=== PATIENT | female | born 1955 | race Caucasian/White ===

== ENCOUNTER 2017-03-18 15:41 | Emergency (ER) | payer OTHER ==
[~2017-03-18] VITALS: Ht 152.4 cm; Wt 58.0 kg
[2017-03-18 15:43] VITALS: BP 153/70; PULSE 105; RESP 28; TEMP 97.7; O2SAT 100
[2017-03-18 16:07] VITALS: BP 129/58; PULSE 85; RESP 18; O2SAT 100
[2017-03-18] MEDS ORDERED: SODIUM CHLOR 0.9% 1000 ML INJ 1,000 ML IV ONE ×2 (16:10→18:45)
[2017-03-18] MEDS ORDERED: SODIUM CHLORIDE 0.9% FLUSH 10 ML FLUSH IVF PRN (16:15)
[2017-03-18] MEDS ORDERED: ONDANSETRON HCL 4 MG/2 ML VIAL IV PUSH ONE (16:15)
--- NOTE | 2017-03-18 16:20 | PD ---
HPI Chief Complaint: GI Complaint Time Seen by Provider: 16:05 Travel History International Travel<30 days: No Contact w/Intl Traveler<30days: No Traveled to known affect area: No History of Present Illness HPI 61-year-old female presents to the emergency department for evaluation of GI upset, vomiting. She states she woke up feeling fine. Around 9:30 this morning , she started to feel GI upset. She states around 1:30, she started vomiting. She reports vomiting over 8 times since then. She had one loose bowel movement this morning, but no further episodes. She states this is not unusual for her. No blood in her stool. She denies any abdominal pain. She states she has had some tingling to her bilateral hands and lower legs. She states that the hands have resolved, but still has tingling to her bilateral lower legs. She has a history of anxiety. She states she did have an episode shortness of breath, but states she was anxious about the time. She has no shortness of breath at this time. No chest pain. No fevers or chills. Moderate severity. No exacerbating or alleviating factors. PFSH Past Medical History Cancer: Yes (BREAST CA ) Tetanus Vaccination: > 5 Years Past Surgical History Hysterectomy: Yes Thoracic Surgery: Yes (CARPEL TUNNEL ) Other Surgery: Yes (PORT PLACEMENT AND REMOVAL, LEFT TUMOR REMOVAL FROM LEFT BREAST, LYPH NODE ) Social History Alcohol Use: No Tobacco Use: No Substance Use: No Allergies-Medications (Allergen,Severity, Reaction): Coded Allergies: phenobarbital (Verified Allergy, Unknown, 03/18/17) Reported Meds & Prescriptions Reported Meds & Active Scripts Active Reported Cymbalta DR (Duloxetine HCl) 20 Mg Capdr 20 Mg PO BID Zocor (Simvastatin) 40 Mg Tab 40 Mg PO EVERY OTHER DAY Arimidex (Anastrozole) 1 Mg Tab 1 Mg PO DAILY Tylenol Arthritis (Acetaminophen) 650 Mg Tablet.er 650 Mg PO QID Calcium 600 with Vitamin D (Calcium Carbonate-Cholecalciferol) 600-400 mg-Unit Tab 1 Tab PO BID Multiple Vitamin 1 Tab 1 Tab PO DAILY Aspirin Adult Low Strength (Aspirin) 81 Mg Tabdr 81 Mg PO DAILY Sm Iron (Ferrous Sulfate) 325 Mg (65 Mg Iron) Tab 65 Mg PO DAILY Take 2 tablets on even days Review of Systems Except as stated in HPI: all other systems reviewed are Neg Physical Exam Narrative GENERAL: Well-nourished, well-developed female patient, afebrile. SKIN: Focused skin assessment warm/dry. HEAD: Normocephalic. Atraumatic. EYES: No scleral icterus. No injection or drainage. NECK: Supple, trachea midline. No JVD or lymphadenopathy. CARDIOVASCULAR: Regular rate and rhythm without murmurs, gallops, or rubs. RESPIRATORY: Breath sounds equal bilaterally. No accessory muscle use. Lungs sounds are clear to auscultation. GASTROINTESTINAL: Abdomen soft, non-tender, nondistended. No abdominal tenderness to palpation. MUSCULOSKELETAL: No cyanosis, or edema. BACK: Nontender without obvious deformity. No CVA tenderness. Data Data Last Documented VS Vital Signs Date Time Temp Pulse Resp B/P (MAP) Pulse Ox O2 Delivery O2 Flow Rate FiO2 03/18/17 16:34 87 18 97 Room Air 03/18/17 15:43 97.7 Orders Orders Complete Blood Count With Diff (03/18/17 16:10) Comprehensive Metabolic Panel (03/18/17 16:10) Urinalysis - C+S If Indicated (03/18/17 16:10) Lipase (03/18/17 16:10) Iv Access Insert/Monitor (03/18/17 16:10) Ecg Monitoring (03/18/17 16:10) Oximetry (03/18/17 16:10) Ondansetron Inj (Zofran Inj) (03/18/17 16:15) Sodium Chlor 0.9% 1000 Ml Inj (Ns 1000 M (03/18/17 16:10) Sodium Chloride 0.9% Flush (Ns Flush) (03/18/17 16:15) Potassium Chloride (Kcl) (03/18/17 18:45) Sodium Chlor 0.9% 1000 Ml Inj (Ns 1000 M (03/18/17 18:45) Labs Laboratory Tests Test 03/18/17 16:27 03/18/17 17:30 White Blood Count 13.1 TH/MM3 Red Blood Count 4.17 MIL/MM3 Hemoglobin 11.9 GM/DL Hematocrit 36.2 % Mean Corpuscular Volume 86.8 FL Mean Corpuscular Hemoglobin 28.6 PG Mean Corpuscular Hemoglobin Concent 32.9 % Red Cell Distribution Width 14.8 % Platelet Count 293 TH/MM3 Mean Platelet Volume 7.5 FL Neutrophils (%) (Auto) 94.6 % Lymphocytes (%) (Auto) 2.2 % Monocytes (%) (Auto) 3.0 % Eosinophils (%) (Auto) 0.1 % Basophils (%) (Auto) 0.1 % Neutrophils # (Auto) 12.4 TH/MM3 Lymphocytes # (Auto) 0.3 TH/MM3 Monocytes # (Auto) 0.4 TH/MM3 Eosinophils # (Auto) 0.0 TH/MM3 Basophils # (Auto) 0.0 TH/MM3 CBC Comment DIFF FINAL Differential Comment Blood Urea Nitrogen 18 MG/DL Creatinine 0.87 MG/DL Random Glucose 151 MG/DL Total Protein 7.4 GM/DL Albumin 3.7 GM/DL Calcium Level 8.9 MG/DL Alkaline Phosphatase 58 U/L Aspartate Amino Transf (AST/SGOT) 29 U/L Alanine Aminotransferase (ALT/SGPT) 34 U/L Total Bilirubin 0.4 MG/DL Sodium Level 137 MEQ/L Potassium Level 3.4 MEQ/L Chloride Level 103 MEQ/L Carbon Dioxide Level 26.4 MEQ/L Anion Gap 8 MEQ/L Estimat Glomerular Filtration Rate 66 ML/MIN Lipase 98 U/L Urine Color YELLOW Urine Turbidity CLEAR Urine pH 8.0 Urine Specific [place] 1.021 Urine Protein 30 mg/dL Urine Glucose (UA) NEG mg/dL Urine Ketones 80 mg/dL Urine Occult Blood NEG Urine Nitrite NEG Urine Bilirubin NEG Urine Urobilinogen LESS THAN 2.0 MG/DL Urine Leukocyte Esterase NEG Urine WBC 1 /hpf Urine Amorphous Sediment RARE Urine Mucus FEW /lpf Microscopic Urinalysis Comment CULT NOT INDICATED MDM Medical Decision Making Medical Screen Exam Complete: Yes Emergency Medical Condition: Yes Medical Record Reviewed: Yes Differential Diagnosis Gastroenteritis versus electrolyte abnormality versus dehydration versus anxiety Narrative Course 61-year-old female presents to the emergency department for nausea, vomiting, GI upset. She appears well on exam. IV is established. CBC, CMP, lipase, UA are ordered and pending. Patient is given normal saline 1 L IV bolus, Zofran 4 mg IV. CBC shows leukocytosis 13.1. CMP shows slight hypokalemia at 3.4. Lipase is 98. UA shows 80 ketones, no evidence of infection. Patient is given second liter IV normal saline bolus. Upon examination, she is feeling better. Tingling has resolved. Patient will be discharged with a prescription for Zofran for nausea. She is to follow primary care physician. She is return here for any acute worsening of symptoms. She verbalizes agreement and understanding. The patient was discharged in stable condition with instructions, including return instructions and follow up instructions. Diagnosis Primary Impression: Nausea & vomiting Qualified Codes: R11.2 - Nausea with vomiting, unspecified Referrals: Primary Care Physician call for appointment Patient Instructions: Acute Nausea and Vomiting (ED), General Instructions Additional Instructions: Take Zofran as instructed as needed for nausea/vomiting Follow-up with your primary care physician. Return to the emergency department for any acute worsening of symptoms. Med/Other Pt SpecificInfo: Prescription(s) given Scripts Ondansetron Odt (Ondansetron Odt) 4 Mg Tab 4 MG SL Q6HR Y for Nausea/Vomiting, #12 TAB 0 Refills Prov: Tri Beebe 03/18/17 Disposition: 01 DISCHARGE HOME Condition: Stable Tri Beebe Mar 18, 2017 16:20
[2017-03-18 16:34] VITALS: PULSE 87; RESP 18; O2SAT 97
[2017-03-18] MEDS ORDERED: FERR-35 PO (16:40)
[2017-03-18] MEDS ORDERED: ACET650T67 PO (16:40)
[2017-03-18] MEDS ORDERED: ASPI81TA16 PO (16:40)
[2017-03-18] MEDS ORDERED: CALC1TAB87 PO (16:40)
[2017-03-18] MEDS ORDERED: MULTTAB67 PO (16:40)
[2017-03-18] MEDS ORDERED: DULO20 PO (16:41)
[2017-03-18] MEDS ORDERED: ANAS1 PO (16:41)
[2017-03-18] MEDS ORDERED: ZOCO40TA PO (16:41)
[2017-03-18 17:04] LABS: AUTOMATED NEUTROPHIL # 12.4 TH/MM3 (1.8-7.7); BASOPHIL % 0.1 % (0.0-2.0); EOSINOPHIL % 0.1 % (0.0-4.0); HEMATOCRIT 36.2 % (35.0-46.0); HEMOGLOBIN 11.9 GM/DL (11.6-15.3); LYMPH % 2.2 % (9.0-44.0); LYMPHOCYTE # 0.3 TH/MM3 (1.0-4.8); MEAN CELL VOLUME 86.8 FL (80.0-100.0); MEAN CORPUSCULAR HEMOGLOBIN 28.6 PG (27.0-34.0); MEAN CORPUSCULAR HGB CONC 32.9 % (32.0-36.0); MEAN PLATELET VOLUME 7.5 FL (7.0-11.0); MONOCYTE # 0.4 TH/MM3 (0-0.9); NEUT % 94.6 % (16.0-70.0); PLATELET COUNT 293 TH/MM3 (150-450); RED BLOOD COUNT 4.17 MIL/MM3 (4.00-5.30); RED CELL DISTRIBUTION WIDTH 14.8 % (11.6-17.2); WHITE BLOOD COUNT 13.1 TH/MM3 (4.0-11.0)
[2017-03-18 17:25] LABS: ALBUMIN 3.7 GM/DL (3.4-5.0); ALT (GPT) 34 U/L (10-53); AST (GOT) 29 U/L (15-37); BICARBONATE 26.4 MEQ/L (21.0-32.0); BLOOD UREA NITROGEN 18 MG/DL (7-18); CALCIUM 8.9 MG/DL (8.5-10.1); CHLORIDE 103 MEQ/L (98-107); CREATININE 0.87 MG/DL (0.50-1.00); GLOMERULAR FILTRATION RATE 66 ML/MIN (>89); GLUCOSE,RANDOM 151 MG/DL (74-106); LIPASE 98 U/L (73-393); SODIUM (NA) 137 MEQ/L (136-145)
[2017-03-18 17:29] LABS: ALKALINE PHOSPHATASE 58 U/L (45-117); TOTAL BILIRUBIN ADULT 0.4 MG/DL (0.2-1.0); TOTAL PROTEIN 7.4 GM/DL (6.4-8.2)
[2017-03-18 18:23] LABS: AMORPHOUS SEDIMENT, URINE RARE; BILIRUBIN, URINE NEG (NEG); BLOOD, URINE NEG (NEG); GLUCOSE,URINE NEG (NEG); KETONE, URINE 80 mg/dL (NEG); MUCUS URINE FEW /lpf (OCC); NITRITE,URINE NEG (NEG); URINE COLOR YELLOW (YELLW/STRAW); URINE LEUKOCYTE ESTERASE NEG (NEG)
[2017-03-18] MEDS ORDERED: ONDA4TAB7 SL (18:42)
[2017-03-18] MEDS ORDERED: POTASSIUM CHLORIDE 20 MEQ CONTROLLED RELEASE TAB PO ONE (18:45)
[2017-03-18 19:46] VITALS: BP 126/60
== END 2017-03-18 19:48 | disposition home or self-care (01) ==
LOC: NEPE 15:41
DX: R11.2 Nausea with vomiting, unspecified (principal); D72.829 Elevated white blood cell count, unspecified; E87.6 Hypokalemia; R20.2 Paresthesia of skin; F41.9 Anxiety disorder, unspecified; Z79.82 Long term (current) use of aspirin; Z79.899 Other long term (current) drug therapy
CPT/HCPCS: 80053; 81001; 83690; 85025; 96361; 96374; 99284; J2405; J7030

== ENCOUNTER 2018-01-14 06:17 | Inpatient (IN) ==
[2018-01-14] MEDS ORDERED: Famotidine PF Inj 20 MG/2 ML Vial IV.PUSH ONE (07:12)
[2018-01-14] MEDS ORDERED: Morphine Inj 4 MG/ML Vial IV.PUSH ONE (07:12)
[2018-01-14] MEDS ORDERED: Sod Chloride 0.9% Inj 1,000 ML IV.CONT SCH (07:15)
--- NOTE | 2018-01-14 07:20 | ED ---
HPI General Chief Complaint: Abdominal Pain Stated Complaint: Abd pain Time Seen by Provider: 01/14/18 06:59 Source: patient Mode of arrival: ambulatory Limitations: no limitations History of Present Illness HPI narrative: 62-year-old female complains of abdominal pain with nausea. Patient states that she started having sharp pain and cramping pain localized to left mid and left lower quadrant of the abdomen since yesterday. Patient states that the pain has been constant pain. Patient denies any pain radiation. Patient states that pain is worse this morning. Patient has nausea and syncope this morning from the pain. Patient denies any dysuria frequency. Patient denies any vaginal discharge or bleeding. Patient denies any fever chills. Patient status post hysterectomy in the past. Patient denies history of hyperlipidemia. Patient is a non-smoker. MD complaint: Reports abdominal pain Onset (ago): day(s) Pain Consistency: constant Location: Reports LLQ Severity: moderate Severity scale (1-10): 7 Quality: Reports cramping and sharp Radiation: Reports none Migration to: Reports no migration Relieving factors: nothing Exacerbating factors: nothing Associated symptoms: Reports nausea Related Data Home Medications Medication Instructions Recorded Confirmed anastrozole 1 mg PO DAILY 01/14/18 01/14/18 simvastatin 40 mg PO QPM 01/14/18 01/14/18 Allergies Allergy/AdvReac Type Severity Reaction Status Date / Time phenobarbital Allergy Unknown Swelling Verified 01/14/18 06:26 Review of Systems ROS: all other systems reviewed are negative PMFSH Medical History Medical History Breast cancer metastasized to axillary lymph node (Acute) Hyperlipidemia (Acute) Surgical History Surgical History H/O lumpectomy (Acute) Social History Social History Substance History: No History of Abuse Smoking Status: Never smoker How Often Do You Have a Drink Containing Alcohol: Never Recent Travel in [facility] within the Last 8 Weeks: No Recent Out of Country Travel within the Last 8 Weeks: No Immunization History Tetanus Immunization: Unsure Exam Narrative Exam Narrative: GENERAL: Well-nourished, well-developed patient. SKIN: Focused skin assessment warm/dry. HEAD: Normocephalic. EYES: No scleral icterus. No injection or drainage. NECK: Supple, trachea midline. No JVD or lymphadenopathy. CARDIOVASCULAR: Regular rate and rhythm without murmurs, gallops, or rubs. RESPIRATORY: Breath sounds equal bilaterally. No accessory muscle use. GASTROINTESTINAL: Abdomen soft, nondistended. Patient has moderate tenderness in palpation left mid and left lower quadrant of the abdomen. No rebound tenderness. No mass. MUSCULOSKELETAL: No cyanosis, or edema. BACK: Nontender without obvious deformity. No CVA tenderness. Course Initial Documented Vital Signs Temperature 98 F 01/14/18 06:21 Pulse Rate 79 01/14/18 06:21 Respiratory Rate 16 01/14/18 06:21 Blood Pressure 126/56 L 01/14/18 06:21 Pulse Oximetry 100 01/14/18 06:21 Last Documented Vital Signs Temperature 98 F 01/14/18 06:21 Pulse Rate 79 01/14/18 06:21 Respiratory Rate 16 01/14/18 06:21 Blood Pressure 120/60 01/14/18 06:51 Pulse Oximetry 100 01/14/18 06:21 Medical Decision Making MDM Narrative Medical decision making narrative: 62-year-old female with left side mid abdominal pain and left lower quadrant abdominal pain. Normal saline solution 125 cc an hour. Morphine 2 mg IV. Zofran 4 mg IV. Pepcid 20 mg IV. Levaquin 750 mg IV. Flagyl 500 mg IV. Medical Screen Exam Complete: Yes Emergency Medical Condition: Yes Differential Diagnosis Differential Diagnosis: Differential diagnosis including colitis, UTI, pyelonephritis, nephrolithiasis. Lab Data Lab results reviewed: Yes I reviewed the patient's lab results. Result diagrams: 01/14/18 07:19 01/14/18 07:19 Lab Results 01/14/18 01/14/18 01/14/18 Range/Units 07:19 07:19 07:19 WBC 9.1 (4.0-11.0) th/mm3 RBC 4.38 (4.00-5.30) mil/mm3 Hgb 13.3 (11.6-15.3) gm/dL Hct 39.7 (35.0-46.0) % MCV 90.5 (80.0-100.0) fL MCH 30.2 (27.0-34.0) pg MCHC 33.4 (32.0-36.0) % RDW 14.2 (11.6-17.2) % Plt Count 232 (150-450) th/mm3 MPV 8.2 (7.0-11.0) fL Neut % (Auto) 74.1 H (16.0-70.0) % Lymph % (Auto) 16.7 (9.0-44.0) % [place] % (Auto) 8.7 H (0.0-8.0) % Eos % (Auto) 0.1 (0.0-4.0) % Baso % (Auto) 0.4 (0.0-2.0) % Neut # (Auto) 6.8 (1.8-7.7) th/mm3 Lymph # (Auto) 1.5 (1.0-4.8) th/mm3 Mills # (Auto) 0.8 (0.0-0.9) th/mm3 Eos # (Auto) 0.0 (0.0-0.4) th/mm3 Baso # (Auto) 0.0 (0.0-0.2) th/mm3 WBC Differential . Differential Comment Auto diff final PT 10.0 (9.8-11.6) sec INR 1.0 Ratio APTT 24.7 (24.3-30.1) sec Sodium 138 (136-145) meq/L Potassium 4.0 (3.5-5.1) meq/L Chloride 104 (98-107) meq/L Carbon Dioxide 26.4 (21.0-32.0) meq/L Anion Gap 8 (5-15) meq/L BUN 14 (7-18) mg/dL Creatinine 0.87 (0.50-1.00) mg/dL Estimated GFR 66 L (>89) mL/min Random Glucose 117 H (74-106) mg/dL Lactic Acid (0.4-2.0) mmol/L Calcium 9.0 (8.5-10.1) mg/dL Total Bilirubin 0.5 (0.2-1.0) mg/dL AST 27 (15-37) U/L ALT 39 (10-53) U/L Alkaline Phosphatase 65 (45-117) U/L Total Protein 7.5 (6.4-8.2) g/dL Albumin 3.7 (3.4-5.0) g/dL Lipase 61 L (73-393) U/L Urine Color (Yellw/Straw) Urine Clarity (Clear) Urine pH (5.0-8.5) Ur Specific [place] (1.002-1.035) Urine Protein (Neg-Trace) mg/dL Urine Glucose (UA) (Negative) mg/dL Urine Ketones (Negative) mg/dL Urine Occult Blood (Negative) Urine Nitrate (Negative) Urine Bilirubin (Negative) Urine Urobilinogen (Less than 2) mg/dL Ur Leukocyte Esterase (Negative) Urine RBC (0-3) /hpf Urine WBC (0-5) /hpf Ur Squamous Epith Cells (0-5) /hpf Amorphous Sediment (None) /hpf Urine Bacteria (None) /hpf Micro UA Comment Ur Microscopic Review Urine Culture Comments 01/14/18 01/14/18 Range/Units 07:20 07:20 WBC (4.0-11.0) th/mm3 RBC (4.00-5.30) mil/mm3 Hgb (11.6-15.3) gm/dL Hct (35.0-46.0) % MCV (80.0-100.0) fL MCH (27.0-34.0) pg MCHC (32.0-36.0) % RDW (11.6-17.2) % Plt Count (150-450) th/mm3 MPV (7.0-11.0) fL Neut % (Auto) (16.0-70.0) % Lymph % (Auto) (9.0-44.0) % Mills % (Auto) (0.0-8.0) % Eos % (Auto) (0.0-4.0) % Baso % (Auto) (0.0-2.0) % Neut # (Auto) (1.8-7.7) th/mm3 Lymph # (Auto) (1.0-4.8) th/mm3 Mills # (Auto) (0.0-0.9) th/mm3 Eos # (Auto) (0.0-0.4) th/mm3 Baso # (Auto) (0.0-0.2) th/mm3 WBC Differential Differential Comment PT (9.8-11.6) sec INR Ratio APTT (24.3-30.1) sec Sodium (136-145) meq/L Potassium (3.5-5.1) meq/L Chloride (98-107) meq/L Carbon Dioxide (21.0-32.0) meq/L Anion Gap (5-15) meq/L BUN (7-18) mg/dL Creatinine (0.50-1.00) mg/dL Estimated GFR (>89) mL/min Random Glucose (74-106) mg/dL Lactic Acid 0.7 (0.4-2.0) mmol/L Calcium (8.5-10.1) mg/dL Total Bilirubin (0.2-1.0) mg/dL AST (15-37) U/L ALT (10-53) U/L Alkaline Phosphatase (45-117) U/L Total Protein (6.4-8.2) g/dL Albumin (3.4-5.0) g/dL Lipase (73-393) U/L Urine Color Yellow (Yellw/Straw) Urine Clarity Hazy H (Clear) Urine pH 7.5 (5.0-8.5) Ur Specific [place] 1.016 (1.002-1.035) Urine Protein 100 H (Neg-Trace) mg/dL Urine Glucose (UA) Negative (Negative) mg/dL Urine Ketones Trace H (Negative) mg/dL Urine Occult Blood Trace H (Negative) Urine Nitrate Negative (Negative) Urine Bilirubin Negative (Negative) Urine Urobilinogen 0.2 (Less than 2) mg/dL Ur Leukocyte Esterase Negative (Negative) Urine RBC 0-3 (0-3) /hpf Urine WBC 0-5 (0-5) /hpf Ur Squamous Epith Cells 0-5 (0-5) /hpf Amorphous Sediment Many H (None) /hpf Urine Bacteria Few H (None) /hpf Micro UA Comment Culture not ind Ur Microscopic Review Not Reportable Urine Culture Comments Culture not ind Imaging Data Attestation: I personally reviewed and interpreted this imaging study as follows : Radiologist's impression: Abdomen/Pelvis CT 01/14/18 07:12 CONCLUSION: 1. Abnormal distal descending colon with wall thickening and mild inflammatory change. There are several diverticuli in this region and the findings are most characteristic of acute diverticulitis. There is no free air. There is a small amount of fluid in the lower posterior pelvis. 2. No evidence of metastatic disease. Discharge Plan Discharge Disposition Patient Disposition: Still Patient Discharge Details Diagnosis: Acute diverticulitis Physicians Team ED Provider: Jaylon Sy Primary Care Provider: UNKNOWN, Rxs /Orders / Referrals /Forms Prescriptions: No Action anastrozole 1 mg Tablet 1 mg PO DAILY RF: 0 simvastatin 40 mg Tablet 40 mg PO QPM RF: 0 Status ED Status: With Doctor
[2018-01-14 07:53] LABS: Baso % (Auto) 0.4 % (0.0-2.0); Eos % (Auto) 0.1 % (0.0-4.0); Hematocrit 39.7 % (35.0-46.0); Hemoglobin 13.3 gm/dL (11.6-15.3); Lymph # (Auto) 1.5 th/mm3 (1.0-4.8); Lymph % (Auto) 16.7 % (9.0-44.0); Mean Corpuscular HGB Conc 33.4 % (32.0-36.0); Mean Corpuscular Hemoglobin 30.2 pg (27.0-34.0); Mean Corpuscular Volume 90.5 fL (80.0-100.0); Mean Platelet Volume 8.2 fL (7.0-11.0); Mono # (Auto) 0.8 th/mm3 (0.0-0.9); Mono % (Auto) 8.7 % (0.0-8.0); Neut # (Auto) 6.8 th/mm3 (1.8-7.7); Neut % (Auto) 74.1 % (16.0-70.0); Platelet Count 232 th/mm3 (150-450); Red Blood Count 4.38 mil/mm3 (4.00-5.30); Red Cell Distribution Width 14.2 % (11.6-17.2); White Blood Count 9.1 th/mm3 (4.0-11.0)
[2018-01-14 08:01] LABS: Activated Partial Thrombo Time 24.7 sec (24.3-30.1)
[2018-01-14 08:09] LABS: Albumin 3.7 g/dL (3.4-5.0); Anion Gap 8 meq/L (5-15); Aspartate Aminotransferase 27 U/L (15-37); Blood Urea Nitrogen 14 mg/dL (7-18); Carbon Dioxide 26.4 meq/L (21.0-32.0); Chloride 104 meq/L (98-107); Glomerular Filtration Rate 66 mL/min (>89); Glucose,Random 117 mg/dL (74-106); Lipase 61 U/L (73-393); Sodium 138 meq/L (136-145)
[2018-01-14 08:10] LABS: Alanine Aminotransferase 39 U/L (10-53)
[2018-01-14 08:12] LABS: Alkaline Phosphatase 65 U/L (45-117); Total Protein 7.5 g/dL (6.4-8.2)
[2018-01-14 08:29] LABS: Bilirubin,Urine Negative (Negative); Color,Urine Yellow (Yellw/Straw); Glucose,Urine (UA) Negative (Negative); Leukocyte Esterase,Urine Negative (Negative); Nitrite,Urine Negative (Negative); PH,Urine 7.5 (5.0-8.5); Urobilinogen,Urine 0.2 mg/dL (Less than 2)
[2018-01-14 08:31] LABS: Clarity,Urine Hazy (Clear); RBC,Urine 0-3 /hpf (0-3); Specific Gravity,Urine 1.016 (1.002-1.035); WBC,Urine 0-5 /hpf (0-5)
[2018-01-14 08:32] LABS: Amorphous Sediment,Urine Many /hpf; Bacteria,Urine Few /hpf; Squamous Epithelial Cell,Urine 0-5 /hpf (0-5)
--- NOTE | 2018-01-14 08:53 | CT ---
EXAM DATE: 01/14/2018 8:36 AM EDT AGE/SEX: 62 years / Female INDICATIONS: Left lower abdominal pain with nausea CLINICAL DATA: This is the patient's initial encounter. Patient reports that signs and symptoms have been present for 1 day and indicates a pain score of 7/10. MEDICAL/SURGICAL HISTORY: Carcinoma, breast. Hyperlipidemia Hysterectomy. Lumpectomy ORAL CONTRAST: No oral contrast ingested. RADIATION DOSE: 6.64 CTDI (mGy) COMPARISON: No prior exams available for comparison. TECHNIQUE: Multiple contiguous axial images were obtained through the abdomen and pelvis following b olus infusion of 98 ml Omnipaque 350 (iohexol) nonionic water-soluble contrast as a single exam dos e. No oral contrast ingested. Using automated exposure control and adjustment of the mA and/or kV ac cording to patient size, radiation dose was kept as low as reasonably achievable to obtain optimal di agnostic quality images. DICOM format image data is available electronically for review and comparis on. FINDINGS: Lower Lungs: The visualized lower lungs are clear. Liver: The liver has a homogeneous density without space-occupying lesion. There is no dilation of th e biliary tree. The gallbladder is unremarkable in appearance. Spleen: Homogeneous density without enlargement. Pancreas: Unremarkable without mass or calcification. Kidneys: Normal in size and shape. No evidence of mass or hydronephrosis. Adrenal Glands: Unremarkable. Aorta: Atherosclerotic changes are noted in the aorta with calcification and mild plaque. There is no aneurysm. Bowel/Mesentery: No oral contrast was given limiting the sensitivity of the exam. The distal descend ing colon is abnormal appearance with wall thickening and inflammatory change. There are several dive rticuli in this region. There is no free air. Small amount of fluid in the posterior pelvis. There ar e multiple loops of nondilated air-containing small bowel with several small air-fluid levels. Abdominal Wall: Intact. Retroperitoneum: No evidence of adenopathy in the retrocrural, para-aortic, or deep pelvic regions. Bladder: Contours are smooth. Reproductive Organs: No abnormal masses or calcifications seen. Inguinal: The inguinal region is unremarkable without evidence of adenopathy. Bony Structures: Unremarkable. CONCLUSION: 1. Abnormal distal descending colon with wall thickening and mild inflammatory change. There are sev eral diverticuli in this region and the findings are most characteristic of acute diverticulitis. The re is no free air. There is a small amount of fluid in the lower posterior pelvis. 2. No evidence of metastatic disease. Electronically signed by: Laureano Ram MD 01/14/2018 8:52 AM EDT
--- NOTE | 2018-01-14 09:26 | P.HP ---
History of Present Illness Primary Care Physician: UNKNOWN Chief Complaint: Abdominal pain History of Present Illness: This is a pleasant 62 y/o Female who came to ER with Nausea and abdominal pain, Patient states that she started having sharp pain and cramping pain localized to left mid and left lower quadrant of the abdomen since yesterday. Patient states that the pain has been constant pain. Patient denies any pain radiation. Patient states that pain is worse this morning. Patient has nausea and syncope this morning from the pain. Patient denies any dysuria frequency. Patient denies any vaginal discharge or bleeding. Patient denies any fever chills. Patient status post hysterectomy in the past. pain described as constant pain, on LLQ, 7/10 in intensity, sharp sensation. has history of Breast history metastasized to axillary lymph node, Hyperlipidemia. as per patient the pain started yesterday, 8/10 in intensity, sharp sensation, on LLQ and Left flank. Review of Systems All other systems reviewed negative except as stated in HPI PMFSH - History History Provided By: Patient - Medical History Medical History: Medical History (Last Reviewed 01/14/18 @ 07:21 by Jaylon Sy MD) Breast cancer metastasized to axillary lymph node Hyperlipidemia - Surgical History Surgical History: Surgical History (Last Reviewed 01/14/18 @ 07:21 by Jaylon Sy MD) H/O lumpectomy - Family History Family History: Family History (Last Updated 01/14/18 @ 13:15 by Evaristo Nina MD) Father Family history of cancer Mother Crohn disease - Tobacco History Smoking Status: Never smoker - Alcohol History How Often Do You Have a Drink Containing Alcohol: Never - Substance Use History Substance History: No History of Abuse - Travel History Recent Travel in the [place] Within the Last 8 Weeks: No Recent Travel Out of the Country Within the Last 8 Weeks: No - Immunization History Tetanus Immunization: Unsure Medications and Allergies Active Medications: Active Medications Sodium Chloride (Ns Inj) 1,000 mls @ 125 mls/hr IV.CONT .Q8H [facility] Stop: 01/14/18 15:14 Last Admin: 01/14/18 07:35 Dose: 125 mls/hr Levofloxacin/Dextrose (Levaquin 750 Mg Premix Inj) 150 mls @ 100 mls/hr IV.SIG ONCE ONE Stop: 01/14/18 10:36 Metronidazole/Sodium Chloride (Flagyl 500 Mg Inj) 100 mls @ 100 mls/hr IV.SIG ONCE ONE Stop: 01/14/18 10:06 Allergies Allergy/AdvReac Type Severity Reaction Status Date / Time phenobarbital Allergy Unknown Swelling Verified 01/14/18 06:26 Home Medications Medication Instructions Recorded Confirmed Type anastrozole 1 mg PO DAILY 01/14/18 01/14/18 History simvastatin 40 mg PO QPM 01/14/18 01/14/18 History Exam Vital signs: Vital Signs 01/14/18 06:21 01/14/18 06:51 Temperature 98 F Pulse Rate 79 Respiratory Rate 16 Blood Pressure 126/56 L 120/60 Pulse Oximetry 100 Intake & Output 01/13/18 01/14/18 01/14/18 18:59 06:59 18:59 Weight 56.699 kg Narrative: GENERAL: Well-nourished, well-developed patient. SKIN: Focused skin assessment warm/dry. HEAD: Normocephalic. EYES: No scleral icterus. No injection or drainage. NECK: Supple, trachea midline. No JVD or lymphadenopathy. CARDIOVASCULAR: Regular rate and rhythm without murmurs, gallops, or rubs. RESPIRATORY: Breath sounds equal bilaterally. No accessory muscle use. GASTROINTESTINAL: Abdomen soft, nondistended. Patient has moderate tenderness in palpation left mid and left lower quadrant of the abdomen. No rebound tenderness. No mass. MUSCULOSKELETAL: No cyanosis, or edema. BACK: Nontender without obvious deformity. No CVA tenderness. Results - Labs CBC & Chem 7: 01/14/18 07:19 01/14/18 07:19 Labs: Laboratory Results - last 24 hr 01/14/18 01/14/18 01/14/18 07:19 07:19 07:19 WBC 9.1 RBC 4.38 Hgb 13.3 Hct 39.7 MCV 90.5 MCH 30.2 MCHC 33.4 RDW 14.2 Plt Count 232 MPV 8.2 Neut % (Auto) 74.1 H Lymph % (Auto) 16.7 [place] % (Auto) 8.7 H Eos % (Auto) 0.1 Baso % (Auto) 0.4 Neut # (Auto) 6.8 Lymph # (Auto) 1.5 [place] # (Auto) 0.8 Eos # (Auto) 0.0 Baso # (Auto) 0.0 WBC Differential . Differential Comment Auto diff final PT 10.0 INR 1.0 APTT 24.7 Sodium 138 Potassium 4.0 Chloride 104 Carbon Dioxide 26.4 Anion Gap 8 BUN 14 Creatinine 0.87 Estimated GFR 66 L Random Glucose 117 H Lactic Acid Calcium 9.0 Total Bilirubin 0.5 AST 27 ALT 39 Alkaline Phosphatase 65 Total Protein 7.5 Albumin 3.7 Lipase 61 L Urine Color Urine Clarity Urine pH Ur Specific [place] Urine Protein Urine Glucose (UA) Urine Ketones Urine Occult Blood Urine Nitrate Urine Bilirubin Urine Urobilinogen Ur Leukocyte Esterase Urine RBC Urine WBC Ur Squamous Epith Cells Amorphous Sediment Urine Bacteria Micro UA Comment Ur Microscopic Review Urine Culture Comments 01/14/18 01/14/18 07:20 07:20 WBC RBC Hgb Hct MCV MCH MCHC RDW Plt Count MPV Neut % (Auto) Lymph % (Auto) [place] % (Auto) Eos % (Auto) Baso % (Auto) Neut # (Auto) Lymph # (Auto) [place] # (Auto) Eos # (Auto) Baso # (Auto) WBC Differential Differential Comment PT INR APTT Sodium Potassium Chloride Carbon Dioxide Anion Gap BUN Creatinine Estimated GFR Random Glucose Lactic Acid 0.7 Calcium Total Bilirubin AST ALT Alkaline Phosphatase Total Protein Albumin Lipase Urine Color Yellow Urine Clarity Hazy H Urine pH 7.5 Ur Specific [place] 1.016 Urine Protein 100 H Urine Glucose (UA) Negative Urine Ketones Trace H Urine Occult Blood Trace H Urine Nitrate Negative Urine Bilirubin Negative Urine Urobilinogen 0.2 Ur Leukocyte Esterase Negative Urine RBC 0-3 Urine WBC 0-5 Ur Squamous Epith Cells 0-5 Amorphous Sediment Many H Urine Bacteria Few H Micro UA Comment Culture not ind Ur Microscopic Review Not Reportable Urine Culture Comments Culture not ind - Imaging Impressions Abdomen/Pelvis CT 01/14/18 07:12 CONCLUSION: 1. Abnormal distal descending colon with wall thickening and mild inflammatory change. There are several diverticuli in this region and the findings are most characteristic of acute diverticulitis. There is no free air. There is a small amount of fluid in the lower posterior pelvis. 2. No evidence of metastatic disease. Caprini VTE Risk Assessment Caprini VTE Risk Assessment: No/Low Risk (score <= 1) Caprini Risk Assessment Model: Point Value = 1 Point Value = 2 Point Value = 3 Point Value = 5 Age 41-60 Minor surgery BMI > 25 kg/m2 Swollen legs Varicose veins or History of unexplained or recurrent spontaneous Oral contraceptives or hormone replacement Sepsis (< 1 month) Serious lung disease, including pneumonia (< 1 month) Abnormal pulmonary function Acute myocardial infarction Congestive heart failure (< 1 month) History of inflammatory bowel disease Medical patient at bed rest Age 61-74 Arthroscopic surgery Major open surgery (> 45 min) Laparoscopic surgery (> 45 min) Malignancy Confined to bed (> 72 hours) Immobilizing plaster cast Central venous access Age >= 75 History of VTE Family history of VTE Factor V Leiden Prothrombin [id number] Lupus anticoagulant Anticardiolipin antibodies Elevated serum homocysteine Heparin-induced thrombocytopenia Other congenital or acquired thrombophilia Stroke (< 1 month) Elective arthroplasty Hip, pelvis, or leg fracture Acute spinal cord injury (< 1 month) Prophylaxis Regimen: Total Risk Factor Score Risk Level Prophylaxis Regimen 0-1 Low Early ambulation 2 Moderate Order ONE of the following: *Sequential Compression Device (SCD) *Heparin 5000 units SQ BID 3-4 Higher Order ONE of the following medications: *Heparin 5000 units SQ TID *Enoxaparin/Lovenox 40 mg SQ daily (WT < 150 kg, CrCl > 30 mL/min) *Enoxaparin/Lovenox 30 mg SQ daily (WT < 150 kg, CrCl > 10-29 mL/min) *Enoxaparin/Lovenox 30 mg SQ BID (WT < 150 kg, CrCl > 30 mL/min) AND/OR *Sequential Compression Device (SCD) 5 or more Highest Order ONE of the following medications: *Heparin 5000 units SQ TID (Preferred with Epidurals) *Enoxaparin/Lovenox 40 mg SQ daily (WT < 150 kg, CrCl > 30 mL/min) *Enoxaparin/Lovenox 30 mg SQ daily (WT < 150 kg, CrCl > 10-29 mL/min) *Enoxaparin/Lovenox 30 mg SQ BID (WT < 150 kg, CrCl > 30 mL/min) AND *Sequential Compression Device (SCD) Assessment and Plan - Plan 1. Intractable Abdominal pain/Nausea and vomit given Zofran, Pepcid and Levaquin in ER, WBC count 9.1, Hemoglobin 13.3, CT abdomen and Pelvis Abnormal distal descending Colon with wall thickening and mild inflammatory changes. Several diverticula in this region for diverticulitis, no evidence of metastatic disease, will continue Levofloxacin and Metronidazole already started in ER. NPO, IV fluids and follow electrolytes, GI specialist consult. Protonix. 2. Acute Diverticulitis continue IV antibiotics for at least three days then may continue by mouth. 3. Hyperlipidemia on hold Statin 4. Breast Cancer History with metastasis to Lymph node DVT prophylaxis with Heparin. Code Status: Full code. Discussed Condition With: Patient and Nurse. Discharge Planning: Once cleared by Specialist
[2018-01-14] MEDS ORDERED: Bisacodyl 10 MG Supp RECTAL PRN (09:27)
[2018-01-14] MEDS: Heparin - SQ 10,000 UNITS/ML Vial SQ SCH ×2 (12:10→19:52)
[2018-01-14] MEDS: Acetaminophen 325 MG Tablet PO PRN ×2 (12:12→19:51)
[2018-01-14] MEDS: Sod Chloride 0.9% Inj 1,000 ML IV.CONT SCH ×2 (13:57→21:47)
[2018-01-14] MEDS: Pantoprazole Inj 40 MG Vial IV.PUSH SCH ×2 (13:58→20:00)
--- NOTE | 2018-01-14 16:41 | P.CONGI ---
History of Present Illness Consult date: 01/14/18 Consult reason: Abdominal pain, Chief complaint: Acute Diverticulitis History of Present Illness: This is a slim 62-year-old female who had been in her usual state of health up until approximately 30 hours ago when she noted left-sided mid and lower abdominal pain uncontrolled with a pain scale of 7 out of 10. Patient noted the pain was sharp and fairly consistent and with symptoms of some nausea and vomiting which continues throughout this day. Patient denies any obvious dyspepsia or dysphasia and no obvious bleeding. Aggregating factors none known alleviating factors hydration and pain management at the hospital. Gastroenterology has been consulted to assist with her symptoms and current patient care. CT scan on admission showed descending colon wall thickening and mild inflammation changes probable related to diverticulitis. No obvious metastasis seen. Patient notes last colonoscopy done around 2006 without any issues and no previous EGD. Patient does note family history of mom with Crohn' s disease but no known colon cancer. Current labs evaluated found in hemoglobin 13.3, WBC count 9.1. Patient has never been seen by gastroenterology before but goes to the [facility] group with Dr. Bae and patient would also like to be followed by this group if at all possible. [facility] History History Provided By: Patient - Medical History Medical History: Medical History (Last Reviewed 01/14/18 @ 07:21 by Jaylon Sy MD) Breast cancer metastasized to axillary lymph node Hyperlipidemia - Surgical History Surgical History: Surgical History (Last Reviewed 01/14/18 @ 07:21 by Jaylon Sy MD) H/O lumpectomy - Family History Family History: Family History (Last Updated 01/14/18 @ 13:15 by Evaristo Nina MD) Father Family history of cancer Mother Crohn disease - Tobacco History Second Hand Smoke Exposure: No Tobacco Use In Past 30 Days: No Smoking Status: Former smoker Tobacco Type: Cigarettes - Alcohol History How Often Do You Have a Drink Containing Alcohol: Never - Substance Use History Substance History: No History of Abuse - Travel History Recent Travel in the [place] Within the Last 8 Weeks: No Recent Travel Out of the Country Within the Last 8 Weeks: No - Immunization History Tetanus Immunization: Unsure Hx Influenza Vaccine This Season: Yes Medications and Allergies Active Medications: Active Medications Acetaminophen (Tylenol) 650 mg PO Q4H PRN PRN Reason: Temp > 100.4 Last Admin: 01/14/18 12:12 Dose: 650 mg Al Hydroxide/Mg Hydroxide (Milk Of Magnesia Liq) 30 ml PO Q12H PRN PRN Reason: Mild Constipation Bisacodyl (Dulcolax Supp) 10 mg RECTAL DAILY PRN PRN Reason: SEVERE CONSITIPATION Heparin Sodium (Porcine) (Heparin Inj) 5,000 units SQ Q8H [facility] Last Admin: 01/14/18 12:10 Dose: 5,000 units Sodium Chloride (Ns Inj) 1,000 mls @ 100 mls/hr IV.CONT .Q10H [facility] Last Admin: 01/14/18 13:57 Dose: 100 mls/hr Metronidazole/Sodium Chloride (Flagyl 500 Mg Inj) 100 mls @ 100 mls/hr IV.SIG Q8H [facility] Levofloxacin/Dextrose (Levaquin 750 Mg Premix Inj) 150 mls @ 100 mls/hr IV.SIG Q24H [facility] Lactulose (Lactulose Liq) 30 ml PO DAILY PRN PRN Reason: SEVERE CONSITIPATION Ondansetron HCl (Zofran Inj) 4 mg IV.PUSH Q4H PRN PRN Reason: NAUSEA OR VOMITING Last Admin: 01/14/18 12:11 Dose: 4 mg Pantoprazole Sodium (Protonix Inj) 40 mg IV.PUSH Q12HR [facility] Last Admin: 01/14/18 13:58 Dose: 40 mg Sennosides (Senokot) 17.2 mg PO Q12H PRN PRN Reason: Moderate Constipation Allergies Allergy/AdvReac Type Severity Reaction Status Date / Time phenobarbital Allergy Unknown Swelling Verified 01/14/18 06:26 Home Medications Medication Instructions Recorded Confirmed Type anastrozole 1 mg PO DAILY 01/14/18 01/14/18 History simvastatin 40 mg PO QPM 01/14/18 01/14/18 History Exam Vital signs: Vital Signs 01/14/18 06:21 01/14/18 06:51 01/14/18 11:10 Temperature 98 F Pulse Rate 79 87 Respiratory Rate 16 18 Blood Pressure 126/56 L 120/60 109/55 L Pulse Oximetry 100 Intake & Output 01/13/18 01/14/18 01/14/18 18:59 06:59 18:59 Intake Total 1250 / 1250 Balance 1250 / 1250 Weight 56.699 kg 58.7 kg Intake: IV 1250 / 1250 NS Inj 1,000 ML @ 125 mls/hr IV 1000 / 1000 .CONT .Q8H [facility] Rx#:[id number] Other: Weight On Admission 56.699 kg Results - Labs CBC & Chem 7: 01/14/18 07:19 01/14/18 07:19 Labs: Laboratory Results - last 24 hr 01/14/18 01/14/18 01/14/18 07:19 07:19 07:19 WBC 9.1 RBC 4.38 Hgb 13.3 Hct 39.7 MCV 90.5 MCH 30.2 MCHC 33.4 RDW 14.2 Plt Count 232 MPV 8.2 Neut % (Auto) 74.1 H Lymph % (Auto) 16.7 [place] % (Auto) 8.7 H Eos % (Auto) 0.1 Baso % (Auto) 0.4 Neut # (Auto) 6.8 Lymph # (Auto) 1.5 [place] # (Auto) 0.8 Eos # (Auto) 0.0 Baso # (Auto) 0.0 WBC Differential . Differential Comment Auto diff final PT 10.0 INR 1.0 APTT 24.7 Sodium 138 Potassium 4.0 Chloride 104 Carbon Dioxide 26.4 Anion Gap 8 BUN 14 Creatinine 0.87 Estimated GFR 66 L Random Glucose 117 H Lactic Acid Calcium 9.0 Total Bilirubin 0.5 AST 27 ALT 39 Alkaline Phosphatase 65 Total Protein 7.5 Albumin 3.7 Lipase 61 L Urine Color Urine Clarity Urine pH Ur Specific [place] Urine Protein Urine Glucose (UA) Urine Ketones Urine Occult Blood Urine Nitrate Urine Bilirubin Urine Urobilinogen Ur Leukocyte Esterase Urine RBC Urine WBC Ur Squamous Epith Cells Amorphous Sediment Urine Bacteria Micro UA Comment Ur Microscopic Review Urine Culture Comments 01/14/18 01/14/18 07:20 07:20 WBC RBC Hgb Hct MCV MCH MCHC RDW Plt Count MPV Neut % (Auto) Lymph % (Auto) [place] % (Auto) Eos % (Auto) Baso % (Auto) Neut # (Auto) Lymph # (Auto) [place] # (Auto) Eos # (Auto) Baso # (Auto) WBC Differential Differential Comment PT INR APTT Sodium Potassium Chloride Carbon Dioxide Anion Gap BUN Creatinine Estimated GFR Random Glucose Lactic Acid 0.7 Calcium Total Bilirubin AST ALT Alkaline Phosphatase Total Protein Albumin Lipase Urine Color Yellow Urine Clarity Hazy H Urine pH 7.5 Ur Specific [place] 1.016 Urine Protein 100 H Urine Glucose (UA) Negative Urine Ketones Trace H Urine Occult Blood Trace H Urine Nitrate Negative Urine Bilirubin Negative Urine Urobilinogen 0.2 Ur Leukocyte Esterase Negative Urine RBC 0-3 Urine WBC 0-5 Ur Squamous Epith Cells 0-5 Amorphous Sediment Many H Urine Bacteria Few H Micro UA Comment Culture not ind Ur Microscopic Review Not Reportable Urine Culture Comments Culture not ind - Imaging Impressions Abdomen/Pelvis CT 01/14/18 07:12 CONCLUSION: 1. Abnormal distal descending colon with wall thickening and mild inflammatory change. There are several diverticuli in this region and the findings are most characteristic of acute diverticulitis. There is no free air. There is a small amount of fluid in the lower posterior pelvis. 2. No evidence of metastatic disease. Assessment and Plan - Plan 62-year-old female who had been in her usual state of health up until approximately 30 hours ago when she noted left-sided mid and lower abdominal pain uncontrolled with a pain scale of 7 out of 10. Patient noted the pain was sharp and fairly consistent and with symptoms of some nausea and vomiting which continues throughout this day. Patient denies any obvious dyspepsia or dysphasia and no obvious bleeding. Aggregating factors none known alleviating factors hydration and pain management at the hospital. Gastroenterology has been consulted to assist with her symptoms and current patient care. CT scan on admission showed descending colon wall thickening and mild inflammation changes probable related to diverticulitis. No obvious metastasis seen. Patient notes last colonoscopy done around 2006 without any issues and no previous EGD. Patient does note family history of mom with Crohn's disease but no known colon cancer. Current labs evaluated found in hemoglobin 13.3, WBC count 9.1. Patient has never been seen by gastroenterology before but goes to the [facility] group with Dr. Bae and patient would also like to be followed by this group if at all possible. Follow-up will be done on this request in the a.m. Diverticulitis diagnosed on CT scan, descending colon with wall thickening and mild inflammation changes Left lower quadrant abdominal pain times 30 hours with some associated nausea and vomiting Plan Diet, n.p.o. for now, may have a few ice chips if not actively vomiting to moisten oral cavity Monitor labs IV hydration Levaquin IV Flagyl IV PPI Bowel regimen Supportive care, will follow up on patient's request for [facility] since her is a patient there in a.m. Patient was seen per myself and , note was written on his behalf
--- NOTE | 2018-01-14 22:03 | ECG ---
Date Performed: 01/14/2018 Time Performed: 06:39:45 PTAGE: 62 years EKG: Sinus rhythm NORMAL ECG NO PREVIOUS TRACING DOCTOR: Fani Brown Interpretating Date/Time 01/14/2018 22:03:25
[2018-01-15] MEDS: Sod Chloride 0.9% Inj 1,000 ML IV.CONT SCH ×2 (00:09→05:42)
[2018-01-15] MEDS: Heparin - SQ 10,000 UNITS/ML Vial SQ SCH ×3 (03:35→18:18)
[2018-01-15 04:20] LABS: Baso % (Auto) 0.4 % (0.0-2.0); Eos % (Auto) 0.5 % (0.0-4.0); Hematocrit 35.7 % (35.0-46.0); Hemoglobin 12.1 gm/dL (11.6-15.3); Lymph # (Auto) 1.8 th/mm3 (1.0-4.8); Mean Corpuscular HGB Conc 33.9 % (32.0-36.0); Mean Corpuscular Hemoglobin 30.4 pg (27.0-34.0); Mean Corpuscular Volume 89.5 fL (80.0-100.0); Mean Platelet Volume 8.2 fL (7.0-11.0); Mono # (Auto) 0.5 th/mm3 (0.0-0.9); Mono % (Auto) 10.1 % (0.0-8.0); Neut # (Auto) 2.8 th/mm3 (1.8-7.7); Platelet Count 194 th/mm3 (150-450); Red Blood Count 3.99 mil/mm3 (4.00-5.30); Red Cell Distribution Width 14.1 % (11.6-17.2); White Blood Count 5.1 th/mm3 (4.0-11.0)
[2018-01-15 04:47] LABS: Calcium 8.3 mg/dL (8.5-10.1); Potassium 3.8 meq/L (3.5-5.1)
[2018-01-15] MEDS: Acetaminophen 325 MG Tablet PO PRN (04:54)
--- NOTE | 2018-01-15 08:48 | P.PN ---
Subjective Interval history: Follow up on patient with acute diverticulitis. Patient seen and examined. Patient reports she is feeling a little better this am. She is complaining of anterior neck pain. She reports a fall at home just prior to coming into the ED. She reports vomiting then went to the cabinet to take medication when she passed out suddenly. She does not know if she hit her head. She denies any focal weakness. She does report pain with ambulation in the left hip and back of the upper left leg since the fall. She denies any back pain. She denies any fever or chills. She reports headache. She denies any difficulty swallowing. She states her abdominal pain feels better. She was able to get up and use the bathroom last night with less abdominal pain. She denies any vomiting, dry heaves or nausea this morning. She denies any diarrhea. She denies any previous hx of diverticulitis. She had a colonoscopy in 2006. Physical Exam Vital signs: Vital Signs 01/14/18 11:10 01/14/18 16:00 01/14/18 20:00 Temperature 98.5 F 97.8 F Pulse Rate 87 75 93 H Respiratory Rate 18 18 16 Blood Pressure 109/55 L 95/52 L 100/50 L Pulse Oximetry 93 L 98 01/15/18 00:00 01/15/18 04:00 Temperature 98.2 F 97.6 F Pulse Rate 78 70 Respiratory Rate 16 18 Blood Pressure 98/52 L 126/69 Pulse Oximetry 99 99 Intake & Output 01/14/18 01/15/18 01/15/18 18:59 06:59 18:59 Intake Total 1350 / 1350 1805 / 1805 Balance 1350 / 1350 1805 / 1805 Weight 58.7 kg 59.2 kg Intake: IV 1350 / 1350 1685 / 1685 NS Inj 1,000 ML @ 100 mls/hr IV 1000 / 1000 1585 / 1585 .CONT .Q10H [facility] Rx#:[id number] Flagyl 500 MG Inj 100 ML @ 100 100 / 100 100 / 100 mls/hr IV.SIG Q8H [facility] Rx#: [id number] Oral 120 / 120 Other: # Voids 6 Date of Last Bowel Movement 01/15/18 Weight On Admission 56.699 kg Narrative: GENERAL: WDWN female patient, INAD. Awake and alert. SKIN: Warm and dry. No generalized rash. HEENT: Atraumatic. Normocephalic. Pupils equal and round. No scleral icterus. No injection or drainage. ENT: No nasal bleeding or discharge. Mucous membranes pink and moist. NECK: Trachea midline. +tenderness to palpation anterior neck bilaterally. CARDIOVASCULAR: Regular rate and rhythm. RESPIRATORY: No accessory muscle use. Clear to auscultation. Breath sounds equal bilaterally. GASTROINTESTINAL: Abdomen soft, nondistended. +Mild tenderness to palpation left upper and lower quadrants. No guarding. No rebound. MUSCULOSKELETAL: Extremities without clubbing, cyanosis, or edema. No obvious deformities. Left hip nontender to palpation. Good ROM noted left hip. NEUROLOGICAL: Awake and alert. No obvious cranial nerve deficits. Motor grossly within normal limits. Able to move all extremities spontaneously. Normal speech. PSYCHIATRIC: Appropriate mood and affect; insight and judgment normal. Results - Labs CBC & Chem 7: 01/15/18 03:20 01/15/18 03:20 Laboratory Results - last 24 hr 01/14/18 01/15/18 01/15/18 07:20 03:20 03:20 WBC 5.1 RBC 3.99 L Hgb 12.1 Hct 35.7 MCV 89.5 MCH 30.4 MCHC 33.9 RDW 14.1 Plt Count 194 MPV 8.2 Neut % (Auto) 54.0 Lymph % (Auto) 35.0 [place] % (Auto) 10.1 H Eos % (Auto) 0.5 Baso % (Auto) 0.4 Neut # (Auto) 2.8 Lymph # (Auto) 1.8 [place] # (Auto) 0.5 Eos # (Auto) 0.0 Baso # (Auto) 0.0 WBC Differential . Differential Comment Auto diff final Sodium 140 Potassium 3.8 Chloride 108 H Carbon Dioxide 28.0 Anion Gap 4 L BUN 10 Creatinine 0.79 Estimated GFR 73 L Random Glucose 81 Calcium 8.3 L Urine Color Yellow Urine Clarity Hazy H Urine pH 7.5 Ur Specific [place] 1.016 Urine Protein 100 H Urine Glucose (UA) Negative Urine Ketones Trace H Urine Occult Blood Trace H Urine Nitrate Negative Urine Bilirubin Negative Urine Urobilinogen 0.2 Ur Leukocyte Esterase Negative Urine RBC 0-3 Urine WBC 0-5 Ur Squamous Epith Cells 0-5 Amorphous Sediment Many H Urine Bacteria Few H Micro UA Comment Culture not ind Ur Microscopic Review Not Reportable Urine Culture Comments Culture not ind - Imaging Impressions Abdomen/Pelvis CT 01/14/18 07:12 CONCLUSION: 1. Abnormal distal descending colon with wall thickening and mild inflammatory change. There are several diverticuli in this region and the findings are most characteristic of acute diverticulitis. There is no free air. There is a small amount of fluid in the lower posterior pelvis. 2. No evidence of metastatic disease. Assessment and Plan - Plan 62 y/o Female who came to ER with Nausea and abdominal pain secondary to acute diverticulitis: Acute diverticulitis no previous hx of diverticulitis CT scan shows descending colon with wall thickening and mild inflammation changes -GI following, appreciate assistance -no N/V, abdominal pain better. Change to clear liquid diet and monitor how patient tolerates -Continue on IV Levaquin and Flagyl -Continue on PPI -continue on IVF hydration -IV Zofran prn -BCX pending, follow up until finalized s/p fall at home prior to admission likely dehydration/vasovagal given hx of vomiting, poor po intake, standing up after emesis then passing out Low BPs noted this admission c/o anterior neck pain and left sided hip and upper leg pain -will obtain xrays cervical spine, lumbar spine and left hip -PT eval/tx Hypotension, suspect 2/2 low po intake, emesis -BP better this am -monitor Breast cancer with hx of metastasis to lymph node DVT prophylaxis -Heparin sq Code Status: Full Discussed Condition With: patient, nursing staff, Dr. Mireles Discharge Planning: Not ready for discharge. Discharge pending clinical improvement, GI clearance, tolerating diet. Likely d/c in next 24-48 hours.
[2018-01-15] MEDS: Pantoprazole Inj 40 MG Vial IV.PUSH SCH ×2 (09:38→20:57)
--- NOTE | 2018-01-15 13:14 | XR ---
EXAM DATE: 01/15/2018 12:00 AM EDT AGE/SEX: 62 years / Female INDICATIONS: Patient states lower back pain. CLINICAL DATA: This is the patient's initial encounter. Patient reports that signs and symptoms have been present for 2 days and indicates a pain score of 5/10. MEDICAL/SURGICAL HISTORY: None. None. COMPARISON: No prior exams available for comparison. FINDINGS: The vertebral bodies are in normal alignment without evidence of compression deformity. Bone density is normal for age. Soft tissues are grossly intact. CONCLUSION: Unremarkable examination for patient's age. Electronically signed by: Kwame Ortega MD 01/15/2018 1:12 PM EDT
--- NOTE | 2018-01-15 13:17 | XR ---
EXAM DATE: 01/15/2018 12:00 AM EDT AGE/SEX: 62 years / Female INDICATIONS: Patient states left hip pain after fall. CLINICAL DATA: This is the patient's initial encounter. Patient reports that signs and symptoms have been present for 2 days and indicates a pain score of 5/10. MEDICAL/SURGICAL HISTORY: None. None. COMPARISON: [facility] [place], CT ABDOMEN & PELVIS W CONTRAST, 01/14/2018. . FINDINGS: Bony structures are intact and in normal alignment. Joints are intact without dislocation. Mild dege nerative changes. Osseous density is normal. Soft tissues are unremarkable. No radiopaque foreign b odies seen. CONCLUSION: 1. No acute fracture. Electronically signed by: Hema Lester MD 01/15/2018 1:16 PM EDT
--- NOTE | 2018-01-15 13:17 | XR ---
EXAM DATE: 01/15/2018 12:00 AM EDT AGE/SEX: 62 years / Female INDICATIONS: Patient states neck pain after fall. CLINICAL DATA: This is the patient's initial encounter. Patient reports that signs and symptoms have been present for 2 days and indicates a pain score of 5/10. MEDICAL/SURGICAL HISTORY: None. None. COMPARISON: No prior exams available for comparison. FINDINGS: A complete cervical spine series shows straightening of the cervical spine. Disc space narrowing with anterior osteophyte production seen C5-C6 and C6-C7. Neural foramina are patent bilaterally. Paraspi nal soft tissues are normal. No fracture or dislocation. CONCLUSION: No fracture or dislocation. Mild degenerative disc disease. Electronically signed by: Juancarlos Rogers MD 01/15/2018 1:16 PM EDT
--- NOTE | 2018-01-15 16:10 | P.PNGI ---
Subjective Interval history: Patient ambulating in room. States tolerating liquid diet well without any nausea. No BM yet today <Catrachita Diaz - Last Filed: 01/15/18 16:04> Physical Exam Vital signs: Vital Signs 01/14/18 20:00 01/15/18 00:00 01/15/18 04:00 Temperature 97.8 F 98.2 F 97.6 F Pulse Rate 93 H 78 70 Respiratory Rate 16 16 18 Blood Pressure 100/50 L 98/52 L 126/69 Pulse Oximetry 98 99 99 01/15/18 08:00 01/15/18 12:00 Temperature 97.2 F L 97.0 F L Pulse Rate 72 64 Respiratory Rate 16 14 Blood Pressure 114/56 L 115/55 L Pulse Oximetry 98 100 Intake & Output 01/14/18 01/15/18 01/15/18 18:59 06:59 18:59 Intake Total 1350 / 1350 1805 / 1805 100 / 100 Balance 1350 / 1350 1805 / 1805 100 / 100 Weight 58.7 kg 59.2 kg Intake: IV 1350 / 1350 1685 / 1685 100 / 100 NS Inj 1,000 ML @ 100 mls/hr IV 1000 / 1000 1585 / 1585 .CONT .Q10H [facility] Rx#:[id number] Flagyl 500 MG Inj 100 ML @ 100 100 / 100 100 / 100 100 / 100 mls/hr IV.SIG Q8H [facility] Rx#: [id number] Oral 120 / 120 Other: # Voids 6 Date of Last Bowel Movement 01/15/18 Weight On Admission 56.699 kg - Constitutional no acute distress - Routine HEENT Exam Head: Present: normocephalic - Routine Respiratory Exam Present: CTA bilaterally. Absent: accessory muscle use - Routine Cardiovascular Exam Present: S1, S2 - Routine Abdominal Exam Present: soft, normoactive bowel sounds. Absent: tenderness, distended, guarding, firm - Routine Skin Exam Present: dry, warm - Routine Neurological Exam Present: alert - Routine Psychiatric Exam Present: normal affect, cooperative <Catrachita Diaz - Last Filed: 01/15/18 16:04> Vital signs: Vital Signs 01/15/18 00:00 01/15/18 04:00 01/15/18 08:00 Temperature 98.2 F 97.6 F 97.2 F L Pulse Rate 78 70 72 Respiratory Rate 16 18 16 Blood Pressure 98/52 L 126/69 114/56 L Pulse Oximetry 99 99 98 01/15/18 12:00 01/15/18 16:00 Temperature 97.0 F L 98.2 F Pulse Rate 64 75 Respiratory Rate 14 16 Blood Pressure 115/55 L 114/59 L Pulse Oximetry 100 99 Intake & Output 01/15/18 01/15/18 01/16/18 06:59 18:59 06:59 Intake Total 1805 / 1805 1425 / 1425 Output Total 1800 / 1800 Balance 1805 / 1805 -375 / -375 Weight 59.2 kg Intake: IV 1685 / 1685 765 / 765 NS Inj 1,000 ML @ 100 mls/hr IV 1585 / 1585 .CONT .Q10H [facility] Rx#:[id number] Levaquin 750 mg Premix Inj 150 150 / 150 ML @ 100 mls/hr IV.SIG Q24H [facility] Rx#:[id number] Flagyl 500 MG Inj 100 ML @ 100 100 / 100 200 / 200 mls/hr IV.SIG Q8H [facility] Rx#: [id number] Oral 120 / 120 660 / 660 Output: Urine 1800 / 1800 Other: # Voids 6 Date of Last Bowel Movement 01/15/18 # Bowel Movements 0 <Robert Varela E - Last Filed: 01/15/18 21:27> Results - Labs CBC & Chem 7: 01/15/18 03:20 01/15/18 03:20 Laboratory Results - last 24 hr 01/15/18 01/15/18 03:20 03:20 WBC 5.1 RBC 3.99 L Hgb 12.1 Hct 35.7 MCV 89.5 MCH 30.4 MCHC 33.9 RDW 14.1 Plt Count 194 MPV 8.2 Neut % (Auto) 54.0 Lymph % (Auto) 35.0 [place] % (Auto) 10.1 H Eos % (Auto) 0.5 Baso % (Auto) 0.4 Neut # (Auto) 2.8 Lymph # (Auto) 1.8 [place] # (Auto) 0.5 Eos # (Auto) 0.0 Baso # (Auto) 0.0 WBC Differential . Differential Comment Auto diff final Sodium 140 Potassium 3.8 Chloride 108 H Carbon Dioxide 28.0 Anion Gap 4 L BUN 10 Creatinine 0.79 Estimated GFR 73 L Random Glucose 81 Calcium 8.3 L Microbiology 01/14/18 07:10 Blood - Peripheral Aerobic Blood Culture - Preliminary No growth in 1 day 01/14/18 07:10 Blood - Peripheral Anaerobic Blood Culture - Preliminary No growth in 1 day 01/14/18 07:19 Blood - Peripheral Aerobic Blood Culture - Preliminary No growth in 1 day 01/14/18 07:19 Blood - Peripheral Anaerobic Blood Culture - Preliminary No growth in 1 day - Imaging Impressions Cervical Spine X-Ray 01/15/18 00:00 CONCLUSION: No fracture or dislocation. Mild degenerative disc disease. Hip X-Ray 01/15/18 00:00 CONCLUSION: 1. No acute fracture. Lumbar Spine X-Ray 01/15/18 00:00 CONCLUSION: Unremarkable examination for patient's age. <Catrachita Diaz - Last Filed: 01/15/18 16:04> - Labs CBC & Chem 7: 01/15/18 03:20 01/15/18 03:20 Laboratory Results - last 24 hr 01/15/18 01/15/18 03:20 03:20 WBC 5.1 RBC 3.99 L Hgb 12.1 Hct 35.7 MCV 89.5 MCH 30.4 MCHC 33.9 RDW 14.1 Plt Count 194 MPV 8.2 Neut % (Auto) 54.0 Lymph % (Auto) 35.0 [place] % (Auto) 10.1 H Eos % (Auto) 0.5 Baso % (Auto) 0.4 Neut # (Auto) 2.8 Lymph # (Auto) 1.8 [place] # (Auto) 0.5 Eos # (Auto) 0.0 Baso # (Auto) 0.0 WBC Differential . Differential Comment Auto diff final Sodium 140 Potassium 3.8 Chloride 108 H Carbon Dioxide 28.0 Anion Gap 4 L BUN 10 Creatinine 0.79 Estimated GFR 73 L Random Glucose 81 Calcium 8.3 L Microbiology 01/14/18 07:10 Blood - Peripheral Aerobic Blood Culture - Preliminary No growth in 1 day 01/14/18 07:10 Blood - Peripheral Anaerobic Blood Culture - Preliminary No growth in 1 day 01/14/18 07:19 Blood - Peripheral Aerobic Blood Culture - Preliminary No growth in 1 day 01/14/18 07:19 Blood - Peripheral Anaerobic Blood Culture - Preliminary No growth in 1 day - Imaging Impressions Cervical Spine X-Ray 01/15/18 00:00 CONCLUSION: No fracture or dislocation. Mild degenerative disc disease. Hip X-Ray 01/15/18 00:00 CONCLUSION: 1. No acute fracture. Lumbar Spine X-Ray 01/15/18 00:00 CONCLUSION: Unremarkable examination for patient's age. <Robert Varela E - Last Filed: 01/15/18 21:27> Assessment and Plan - Plan 62-year-old female who had been in her usual state of health up until approximately 30 hours ago when she noted left-sided mid and lower abdominal pain uncontrolled with a pain scale of 7 out of 10. Patient noted the pain was sharp and fairly consistent and with symptoms of some nausea and vomiting which continues throughout this day. Patient denies any obvious dyspepsia or dysphasia and no obvious bleeding. Aggregating factors none known alleviating factors hydration and pain management at the hospital. Gastroenterology has been consulted to assist with her symptoms and current patient care. CT scan on admission showed descending colon wall thickening and mild inflammation changes probable related to diverticulitis. No obvious metastasis seen. Patient notes last colonoscopy done around 2006 without any issues and no previous EGD. Patient does note family history of mom with Crohn's disease but no known colon cancer. Current labs evaluated found in hemoglobin 13.3, WBC count 9.1. Patient has never been seen by gastroenterology before but goes to the [facility] group with Dr. Bae and patient would also like to be followed by this group if at all possible. Follow-up will be done on this request in the a.m. Diverticulitis diagnosed on CT scan, descending colon with wall thickening and mild inflammation changes Left lower quadrant abdominal pain times 30 hours with some associated nausea and vomiting 01/15/2018 Patient ambulating in room, reports tolerating clear liquid diet well. Denies any nausea or vomiting, denies abdominal pain at this time. Hemoglobin 12.1 hematocrit 35.7. Plan per patient is to advance diet and as per attending patient for possible discharge home tomorrow. Patient states she will follow- up GI with the [facility]/Dr. Bae. Plan -Advance diet as tolerated -Antiemetic -PPI -Antibiotics -High-fiber diet with avoidance of nuts and small seeds -Bowel regimen -Supportive care This patient has been seen by myself and Dr. Varela and this note is written on his behalf - Attending Attestation Dr. Varela <Catrachita Diaz - Last Filed: 01/15/18 16:04> - Plan Patient seen and examined Agree with above history and physical Continue with current supportive care Monitor labs If all is stable tomorrow patient may be discharged from a GI standpoint on antibiotics Not much to add from a GI perspective at this point in time we will sign off <Robert Varela - Last Filed: 01/15/18 21:27>
[2018-01-16] MEDS: Heparin - SQ 10,000 UNITS/ML Vial SQ SCH (04:22)
[2018-01-16 05:06] VITALS: RESP 16
[2018-01-16] MEDS: Pantoprazole Inj 40 MG Vial IV.PUSH SCH (10:17)
[2018-01-16 10:25] VITALS: BP 100/56; PULSE 72; TEMP 98.1; O2SAT 99
--- NOTE | 2018-01-16 11:12 | P.DS ---
Date of admission: 01/14/18 09:31 Primary care physician: UNKNOWN Brief History from admission: This is a pleasant 62 y/o Female who came to ER with Nausea and abdominal pain, Patient states that she started having sharp pain and cramping pain localized to left mid and left lower quadrant of the abdomen since yesterday. Patient states that the pain has been constant pain. Patient denies any pain radiation. Patient states that pain is worse this morning. Patient has nausea and syncope this morning from the pain. Patient denies any dysuria frequency. Patient denies any vaginal discharge or bleeding. Patient denies any fever chills. Patient status post hysterectomy in the past. pain described as constant pain, on LLQ, 7/10 in intensity, sharp sensation. has history of Breast history metastasized to axillary lymph node, Hyperlipidemia. as per patient the pain started yesterday, 8/10 in intensity, sharp sensation, on LLQ and Left flank. DS: Medications - Discharge Medications Prescriptions: Lactobacillus acidophilus 500 mmu cells PO TID #30 cap levofloxacin [Levaquin] 750 mg PO DAILY #7 tab metronidazole [Flagyl] 500 mg PO TID #21 tab DS: Summary Hospital Course: Mrs. Torres is a 62-year-old female. She was admitted secondary to acute diverticulitis. Treatments were initiated with IV Flagyl and IV Levaquin. Patient has improved over the past 2 days and today she says she is starting to feel back to baseline. She is tolerating a regular diet. Medically stable and cleared for transition to p.o. treatment and discharge today. She will continue for 7 days with p.o. Flagyl and p.o. Levaquin. She is also provided a probiotic recommended to use this for at least 10 days. Discharge home today. - Time Spent with Patient Total time spent providing and/or coordinating discharge services: Less than 30 minutes - Quality: VTE Deep Vein Thrombosis/Pulmonary Embolism Present on Admission: No Exam Vital signs: Vital Signs 01/15/18 12:00 01/15/18 16:00 01/15/18 20:00 Temperature 97.0 F L 98.2 F 97.9 F Pulse Rate 64 75 74 Respiratory Rate 14 16 16 Blood Pressure 115/55 L 114/59 L 116/58 L Pulse Oximetry 100 99 97 01/16/18 00:00 01/16/18 04:00 01/16/18 08:00 Temperature 98.0 F 97.8 F 98.1 F Pulse Rate 80 69 72 Respiratory Rate 17 16 16 Blood Pressure 112/56 L 113/61 100/56 L Pulse Oximetry 96 98 99 Intake & Output 01/15/18 01/16/18 01/16/18 18:59 06:59 18:59 Intake Total 1425 / 1425 550 / 550 Output Total 1800 / 1800 400 / 400 Balance -375 / -375 150 / 150 Weight 59.7 kg Intake: IV 765 / 765 100 / 100 Levaquin 750 mg Premix Inj 150 150 / 150 ML @ 100 mls/hr IV.SIG Q24H [facility] Rx#:[id number] Flagyl 500 MG Inj 100 ML @ 100 200 / 200 100 / 100 mls/hr IV.SIG Q8H [facility] Rx#: [id number] Oral 660 / 660 450 / 450 Output: Urine 1800 / 1800 400 / 400 Other: Date of Last Bowel Movement 01/15/18 # Bowel Movements 0 Results Procedures completed during hospitalization: none Labs on day of discharge: Preliminary micro results at discharge 01/14/18 07:10 Aerobic Blood Culture - Preliminary Blood - Peripheral No growth in 2 days Anaerobic Blood Culture - Preliminary No growth in 2 days 01/14/18 07:19 Aerobic Blood Culture - Preliminary Blood - Peripheral No growth in 2 days Anaerobic Blood Culture - Preliminary No growth in 2 days - Impressions ITS Impressions Abdomen/Pelvis CT 01/14/18 07:12 CONCLUSION: 1. Abnormal distal descending colon with wall thickening and mild inflammatory change. There are several diverticuli in this region and the findings are most characteristic of acute diverticulitis. There is no free air. There is a small amount of fluid in the lower posterior pelvis. 2. No evidence of metastatic disease. Cervical Spine X-Ray 01/15/18 00:00 CONCLUSION: No fracture or dislocation. Mild degenerative disc disease. Hip X-Ray 01/15/18 00:00 CONCLUSION: 1. No acute fracture. Lumbar Spine X-Ray 01/15/18 00:00 CONCLUSION: Unremarkable examination for patient's age. Discharge Plan - Discharge Disposition Patient Disposition: 01 Discharge Home - Discharge Condition Condition: Stable - Discharge Order Discharge Orders: Discharge Order (Routine); Ordered 01/16/18 Ordered By: Dioni Wu - Discharge Details Anticipated Discharge Date: 01/16/18 - Physicians Team Primary Care Provider: UNKNOWN, Attending Provider: Dioni Wu Other Providers: [employer],Insurance ; Darnell Church MD
== END 2018-01-16 11:38 | disposition home or self-care (01) ==
LOC: NEPC 06:17 → NEDA 09:31 → N04 13:31
PROVIDERS: ADMIT Hospitalist; ATTEND Hospitalist